=== PATIENT | female | born 1970 | race Hispanic/Latino ===

== ENCOUNTER → 2025-05-29 | Outpatient (CLI) | payer OTHER ==
--- NOTE | 2025-05-29 16:00 | HMCIMG ---
EXAM: LUMBAR SPINE 2-3VWS REASON: RA, FIBROMYALGIA. COMPARISON: None. TECHNIQUE: 3 views of the lumbar spine were obtained. FINDINGS: There is normal appearance of the lumbar vertebral bodies. There is small ventral marginal spur suggesting of early osteoarthritic changes. Disc interspace heights are preserved. Alignment is normal. There are no visible fractures. There is mild osteopenia. Soft tissues appear unremarkable. IMPRESSION: 1. No acute fracture or malalignment. 2. Small ventral marginal sclerosis suggesting of early osteophytic changes 3. Mild osteopenia.
--- NOTE | 2025-05-29 16:02 | HMCIMG ---
KNEE/PATELLA 1-2VWS RT REASON: RA, FIBROMYALGIA TECHNIQUE: 2 views were obtained. FINDINGS: There is no evidence of fracture or dislocation. There is no joint effusion. The soft tissues appear unremarkable. There is no evidence of a radiopaque foreign body. IMPRESSION: No acute findings.
== END | disposition home or self-care (01) ==
LOC: RAH 15:16
PROVIDERS: ATTEND Internal Medicine
DX: M79.7 Fibromyalgia (principal); M85.88 Other specified disorders of bone density and structure, other site
CPT/HCPCS: 72100; 73560